=== PATIENT | male | born 1980 | race Caucasian/White ===

== ENCOUNTER 2019-08-07 11:32 | Emergency (ER) | payer OTHER ==
[~2019-08-07] VITALS: Ht 172.7 cm; Wt 68.2 kg
[2019-08-07 11:34] VITALS: BP 137/86; TEMP 97.7
[2019-08-07 12:15] LABS: COLLECTION METHOD CLEAN CATCH
[2019-08-07 12:22] LABS: BASO % 0.4 % (0.0-2.0); EOS % 0.3 % (0-4.0); GRAN # 7.9 (1.4-6.5); GRAN % 83.5 % (42.2-75.2); HEMATOCRIT 42.7 % (42.0-52.0); HEMOGLOBIN 14.6 g/dl (13.5-18.0); LYMPH # 0.9 (1.2-3.4); LYMPH % 9.8 % (20.0-51.0); MEAN CELL VOLUME 89 fl (80.0-100.0); MEAN CORPUSCULAR HEMOGLOBIN 31 pg (27.0-31.0); MEAN CORPUSCULAR HGB CONC 34 g/dl (33.0-37.0); MONO # 0.5 (0.1-0.6); MONO % 5.6 % (1.7-9.3); PLATELET COUNT 303 K/mm3 (130-400); RED BLOOD COUNT 4.78 M/mm3 (4.20-5.60); REDCELL DISTRIBUTION WIDTH-CV 12.1 % (11.5-14.5)
[2019-08-07 12:25] LABS: PH 8 (5-8); SQUAMOUS EPITHELIAL None Seen /hpf; URINE APPEARANCE Clear; URINE BACTERIA None Seen /hpf; URINE BILIRUBIN Negative (NEGATIVE); URINE BLOOD Negative (NEGATIVE); URINE COLOR Straw; URINE GLUCOSE Negative (NEGATIVE); URINE KETONE Negative (NEGATIVE); URINE LEUKOCYTE ESTERASE Negative (NEGATIVE); URINE NITRATE Negative (NEGATIVE); URINE PROTEIN(semi-quant) Negative (NEGATIVE); URINE RBC None Seen /hpf; URINE UROBILINOGEN Negative (NEGATIVE)
[2019-08-07 12:32] LABS: ALANINE AMINOTRANSFERASE 23 U/L (4-49); ALBUMIN 4.8 gm/dL (3.5-5.0); ALKALINE PHOSPHATASE 67 U/L (50-136); ANION GAP 10 mmol/L (7-16); AST,SGOT 27 U/L (15-37); BILIRUBIN,TOTAL 0.6 mg/dL (0.0-1.0); BLOOD UREA NITROGEN 14 mg/dL (9-20); C-REACTIVE PROTEIN < 0.5 mg/dL (0.0-0.9); CARBON DIOXIDE 23 mmol/L (22-30); CHLORIDE 105 mmol/L (98-107); CREATININE, serum 0.85 (0.66-1.25); GLUCOSE 101 mg/dL (74-106); POTASSIUM 3.7 mmol/L (3.4-5.0); SODIUM 138 mmol/L (137-145); TOTAL PROTEIN 8.2 gm/dL (6.4-8.2)
[2019-08-07 13:13] VITALS: PULSE 84
== END 2019-08-07 13:13 | disposition home or self-care (01) ==
LOC: COL.ER 11:32
PROVIDERS: Family Medicine
DX: R55 Syncope and collapse (principal)
CPT/HCPCS: J7120